=== PATIENT | male | born 1995 | race Caucasian/White ===

== ENCOUNTER 2022-08-12 21:20 | Emergency (ER) | payer OTHER, SELFPAY ==
[2022-08-12 21:28] VITALS: BP 134/62; PULSE 102; RESP 16; TEMP 36.3; O2SAT 99; BMI 26.6
--- OUTSIDE RECORDS SUMMARY | 2022-08-12 21:57 | XMS_ITS | Continuity of Care Document ---
:1995 Author Organization [facility] [address] [place] [address]- Care Team Providers Name Role Phone Nery DE LA TORRE, Layton Renee Primary Care Physician Encounter [facility] Date(s): 07/27/21 - 08/03/[address] [place] [id number] Attending Physician: So Staton MD Referring Physician: Not on Staff, Referring MD Allergies, Adverse Reactions, Alerts Substance Reaction Severity Status Paxil Hives Persistent Moderate Active Medications fluticasone 27.5 mcg/inh nasal spray 1 sprays, Nares, Both, 2 times a day, Use one spray twice daily in each nostril for congestion- stopusing for bloody noses, # 10 Gm, 0 Refills, Maintenance, 05/27/14 5:32:37, [place] Start Date: 05/27/14 Status: Orderedibuprofen 600 mg oral tablet 1 tablet = 600 mg, By Mouth, 4 times a day, # 20 tablet, 0 Refills, Maintenance, Tablet Start Date: 05/11/13 Stop Date: 05/16/13 Status: Orderedibuprofen 800 mg oral tablet 800, mg, 1, tablet, By Mouth, Every 8 hours, 21, 0, 0, 10/03/08 23:20:31, with food or milk, Print FITO Number, ADS OPPTHS, 57, Constant Indicator Start Date: 10/03/08 Status: OrderedNo Home Meds Maintenance, 09/02/14 8:54:21, [place] Start Date: 09/02/14 Status: OrderedPercocet-5/325 325 mg-5 mg oral tablet 1, tablet, By Mouth, Every 6 hours, Scheduled / PRN, 24, tablet, 0, 0, 10/03/08 23:20:48, as needed for pain, Print FITO Number, ADS OPPTHS, 54 Start Date: 10/03/08 Status: Ordered Problem List Condition Effective Dates Status Health Status Informant Asthma(Confirmed) Active Vital Signs Most recent to oldest [Reference Range]: 1 Height 172.72 cm (07/27/21 10:30 AM) Weight 80 kg (07/27/21 10:30 AM) Body Mass Index [18.5-24.99] 26.82 *H* (07/27/21 10:30 AM) Temperature [96.8-100.4 DegF] 98.2 DegF (07/27/21 10:30 AM) Social History Social History Type Response Smoking Status Never (less than 100 in life time) entered on: 07/27/21 Sex
--- OUTSIDE RECORDS SUMMARY | 2022-08-12 21:57 | XMS_ITS | Continuity of Care Document ---
:1995 Author Organization [facility] [address] [place] [address]- Care Team Providers Name Role Phone Nery DE LA TORRE, Layton Renee Primary Care Physician Encounter [facility] [place] Date(s): 07/23/21 - 08/26/[address] [place] [id number] Attending Physician: Connor Alonso MD Referring Physician: Not on Staff, Referring MD Allergies, Adverse Reactions, Alerts Substance Reaction Severity Status Paxil Hives Persistent Moderate Active Medications fluticasone 27.5 mcg/inh nasal spray 1 sprays, Nares, Both, 2 times a day, Use one spray twice daily in each nostril for congestion- stopusing for bloody noses, # 10 Gm, 0 Refills, Maintenance, 05/27/14 5:32:37, [place] Start Date: 05/27/14 Status: Orderedibuprofen 600 mg [...] Dates Status Health Status Informant Asthma(Confirmed) Active Social History Social History Type Response Smoking Status Never (less than 100 in life time) entered on: 07/27/21 Sex
--- OUTSIDE RECORDS SUMMARY | 2022-08-12 21:57 | XMS_ITS | Continuity of Care Document ---
:1995 Author Organization [facility] Address [address] [place] [address], [address] [place] [address]- Care Team Providers Name Role Phone Garrett Lima MD Primary Care Physician Encounter 06/24/20 - 07/01/20 [facility] [address], [address] [place] [address]- [facility] Attending Physician: Garrett Lima MD Admitting Physician: Garrett Lima MD Referring Physician: Garrett Lima MD Allergies, Adverse Reactions, Alerts Substance Reaction Severity Status Paxil Hives Persistent Moderate Active Medications fluticasone 27.5 mcg/inh nasal spray 1 sprays, Nares, Both, 2 times a day, Use one spray twice daily in each nostril for congestion- stopusing for bloody noses, # 10 Gm, 0 Refills, Maintenance, 05/27/14 5:32:37, [place] Start Date: 05/27/14 Status: Orderedibuprofen 600 mg [...]
--- OUTSIDE RECORDS SUMMARY | 2022-08-12 21:57 | XMS_ITS | Continuity of Care Document ---
:1995 Author Organization [facility] [address] [place] [address]- Care Team Providers Name Role Phone Layton Gabriel MD Primary Care Physician [place] [facility] [place] [place](s): 07/27/21 - 08/26/[address] [place] [id number] Attending Physician: Alma Walter Admitting Physician: AdmtrAlma Referring Physician: Admtr, ArRadha Allergies, Adverse Reactions, Alerts Substance Reaction Severity Status Paxil Hives Persistent Moderate Active Medications fluticasone 27.5 mcg/inh nasal spray 1 sprays, Nares, Both, 2 times a day, Use one spray twice daily in each nostril for congestion- stopusing for bloody noses, # 10 Gm, 0 Refills, Maintenance, 05/27/14 5:32:37, [place] Start Date: 05/27/14 Status: Orderedibuprofen 600 mg [...]
[2022-08-12 22:33] VITALS: BP 107/74; PULSE 90; RESP 13; TEMP 37.3; O2SAT 94
--- NOTE | 2022-08-12 22:33 | ED_ITS ---
HPI - Allergic Reaction General Chief complaint: Allergic Reaction Stated complaint: allergic reaction to amoxycillian Time Seen by Provider: 08/12/22 21:49 Source: patient Mode of arrival: ambulatory Limitations: no limitations History of Present Illness HPI narrative: Patient been feeling congested for the last few days prescribed amoxicillin yesterday today he woke up with rash all over the macular erythematous rash no swelling of the lips or tongue no shortness of breath Related Data Previous Rx's Medication Instructions Recorded diphenhydramine HCl 25 mg capsule 50 mg PO Q6-8H PRN allergic 08/13/22 (Benadryl) reaction #20 caps prednisone 20 mg tablet 40 mg PO DAILY #10 tabs 08/13/22 Allergies Allergy/AdvReac Type Severity Reaction Status Date / Time amoxicillin Allergy Intermediate Rash Verified 08/12/22 22:34 Review of Systems Review of Systems: Yes all other systems are reviewed and are negative [facility] Social History Social History Advance Directives: No Physical Exam ED Vital Signs: Vital Signs - 24 hr 08/12/22 21:28 08/12/22 22:33 Temperature 97.3 F 99.1 F Pulse Rate 102 H 90 Respiratory Rate 16 13 Blood Pressure 134/62 107/74 Pulse Oximetry 99 94 Oxygen Delivery Method Room Air Room Air BMI result Body Mass Index 26.6 Appearance: Alert. Oriented X3. No acute distress. ENT: Pharynx normal. Oral Mucosa moist clear rhinorrhea tongue and lips normal Neck: Normal inspection. Neck supple. CVS: Normal heart rate and rhythm. Pulses normal. Respiratory: No respiratory distress. Equal air entry bilateral, no wheezing/rales/rhonchi Abdomen: Soft and nontender. Bowel sounds are present, no mass palpable, no CVA tenderness Skin: Skin warm and dry. Maculopapular erythematous rash all over the body Extremities: No lower extremity edema. No calf tenderness Neuro: Oriented X 3. No motor deficit. Medications Administered Discontinued Medications Generic Name Dose Route Start Last Admin Trade Name Freq PRN Reason Stop Dose Admin Diphenhydramine HCl 50 mg 08/12/22 22:34 08/12/22 23:36 Diphenhydramine Hcl 25 Mg Capsule PO 08/12/22 22:35 50 mg ONCE ONE Administration Prednisone 60 mg 08/12/22 22:34 08/12/22 23:36 Prednisone 20 Mg Tablet PO 08/12/22 22:35 60 mg ONCE ONE Administration MDM - Allergic Reaction Lab Data Labs: Lab Results 08/12/22 Range/Units 22:42 Influenza Type A (PCR) NEGATIVE (Negative) Influenza Type B (PCR) NEGATIVE (Negative) RSV RNA Qual (PCR) NEGATIVE (Negative) SARS-CoV-2 RNA (RT-PCR) NEGATIVE (Negative) Discharge Plan Discharge Clinical Impression: Adverse reaction to drug, URI (upper respiratory infection) Patient Disposition: Home, Self-Care Instructions: Upper Respiratory Infection (ED), Antibiotic Medication Allergy (ED) Additional Instructions: Do not take amoxicillin you are allergic to it Benadryl, prednisone as advised Follow-up with your PCP if any concerns Prescriptions: New diphenhydramine HCl [Benadryl] 25 mg capsule 50 mg PO Q6-8H PRN (Reason: allergic reaction) Qty: 20 0RF prednisone 20 mg tablet 40 mg PO DAILY Qty: 10 0RF
[2022-08-12 23:26] LABS: Influenza A PCR NEGATIVE (Negative); Influenza B PCR NEGATIVE (Negative); Resp Syncy Virus RNA Qual PCR NEGATIVE (Negative); SARS COV2 PCR INHOUSE NEGATIVE (Negative)
[2022-08-12] MEDS: predniSONE 20 MG TABLET 60 MG PO (23:36)
[2022-08-12] MEDS: diphenhydrAMINE HCL 25 MG CAPSULE 50 MG PO (23:36)
--- NOTE | 2022-08-13 00:47 | PC.NURSE ---
Discharge instructions reviewed with pt. Pt verbalizes understanding.
== END 2022-08-13 00:48 | disposition home or self-care (01) ==
PROVIDERS: Emergency Provider Internal Medicine
DX: L27.0 Generalized skin eruption due to drugs and medicaments taken internally (principal); T36.0X5A Adverse effect of penicillins, initial encounter; Y92.9 Unspecified place or not applicable; J06.9 Acute upper respiratory infection, unspecified
CPT/HCPCS: 0241U; 99283

== ENCOUNTER 2023-10-16 08:40 | Outpatient (AMB) | payer OTHER, SELFPAY ==
--- OUTSIDE RECORDS SUMMARY | 2023-10-16 08:42 | XMS_ITS | Patient Health Record ---
Author Name Unknown Organization [employer] [facility] Address [address] [place] [id number] Care Team Providers Care Trend Investigator Name Role Phone TRIABBIE Primary Care Provider BedollaClarissaie Unavailable [phone] ALLERGIES Allergen (clinical drug ingredient) Drug/Non Drug Allergy documented on EMR Reaction Allergy Type Onset Date Status amoxicillin / clavulanate Augmentin hives , Severity Observation:Cayla re , Drug Allergy Active paroxetine Paxil hives , Severity Observation:Mode rate , Drug Allergy Active Ragweed , Severity Observation:Mode rate , Allergy Active RESULTS Component Value Reference Range Notes CHLAMYDIA/N. GONORRHOEAE RNA , TMA, UROGENITAL ([id number]) Reviewed date:02/25/2023 08:46:18 AM Interpretation: Performing Lab:NL2, [facility] [place], [place] [id number] Dhruv Velázquez Notes/Report: SPECIMEN DROPPED OFF FASTING:UNKNOWN FASTING: UNKNOWN CHLAMYDIA TRACHOMATIS RNA, TMA, UROGENITAL NOT DETECTED NOT DETECTED NEISSERIA GONORRHOEAE RNA, TMA, UROGENITAL NOT DETECTED NOT DETECTED COMMENT The analytical performance characteristics of this assay, when used to test SurePath(TM) specimens have been determined by [facility]. The modifications have not been cleared or approved by the FDA. This assay has been validated pursuant to the CLIA regulations and is used for clinical purposes. For additional information, please refer to [email or web address]://[email or web address].PhotoBox/faq/LJK732 (This link is being provided for information/ educational purposes only.) CBC (INCLUDES DIFF/PLT) ([id number]) Reviewed date:05/11/2023 07:42:24 AM Interpretation: Performing Lab:NL2, [facility] Dhruv Velázquez Notes/Report: FASTING:NO FASTING: NO WHITE BLOOD CELL COUNT 6.9 3.8-10.8 Thousand/ uL RED BLOOD CELL COUNT 4.96 4.20-5.80 Million/uL HEMOGLOBIN 14.5 13.2-17.1 g/dL HEMATOCRIT 41.9 38.5-50.0 % MCV 84.5 80.0-100.0 fL MCH 29.2 27.0-33.0 pg MCHC 34.6 32.0-36.0 g/dL RDW 12.6 11.0-15.0 % PLATELET COUNT 404 140-400 Thousand/uL MPV 10.9 7.5-12.5 fL ABSOLUTE NEUTROPHILS 4085 3639-5004 cells/uL ABSOLUTE LYMPHOCYTES 2070 850-3900 cells/uL ABSOLUTE MONOCYTES 607 200-950 cells/uL ABSOLUTE EOSINOPHILS 110 15-500 cells/uL ABSOLUTE BASOPHILS 28 0-200 cells/uL NEUTROPHILS 59.2 LYMPHOCYTES 30.0 MONOCYTES 8.8 EOSINOPHILS 1.6 BASOPHILS 0.4 BABESIA DUNCANI (WA1) ANTIBO DY (IGG), IFA ([id number]) Reviewed date:05/17/2023 09:19:50 AM Interpretation: Performing Lab:[facility],[address] [facility] HospitalCA[address] Gina Cedeño MD,PhD,ANDREINA Notes/Report: FASTING:NO FASTING: NO BABESIA DUNCANI (WA1) ANTIBODY (IGG), IFA <1:256 REFERENCE RANGE: <1:256 INTERPRETIVE CRITERIA: <1:256 Antibody not detected > or = 1:256 Antibody detected Babesia duncani, also known as WA1, has been associated with symptoms similar to those caused by Babesia microti. Little, if any, cross-reactivity occurs between Babesia microti and WA1. This test was developed and its analytical performance characteristics have been determined by [facility]. It has not been cleared or approved by FDA. This assay has been validated pursuant to the CLIA regulations and is used for clinical purposes. BARTONELLA SPECIES AB (IGG,I GM) W/REFL TITERS ([id number]) Reviewed date:05/15/2023 11:37:56 AM Interpretation: Performing Lab:Mariah SUTHERLAND/[facility] [id number] [facility] , [id number] Tenzin Perez M.D.,PhD Notes/Report: FASTING:NO FASTING: NO B. HENSELAE AB (IGG), SCREEN Negative B. RICHEY AB (IGG), SCREEN Negative B. HENSELAE AB (IGM), SCREEN Negative B. RICHEY AB (IGM), SCREEN Negative Reference Range: Negative Whereas sera from 10% of healthy controls exhibit Bartonella henselae IgG titers of 1:64-1:128, none show titers of 1:256 or above. Sera from 95% of patients with clinically defined cat scratch disease show IgG titers of 1:64 and above; 79% exhibit titers of 1:256 and above. IgM titers at 1:20 or higher have not been detected in the normal adult population. Individuals infected with B. henselae may not have initial IgG titers greater than or equal to 1:64; confirmation of infection may therefore require testing of serial specimens to detect increasing IgG titers or the presence of IgM. The two major clinical manifestations associated with B. richey infection are urban trench fever and endocarditis. Due to the acute nature of urban trench fever, both B. richey IgG and IgM may be positive. In contrast, B. richey-associated endocarditis typically reflects chronic infection, and these patients nearly always exhibit an IgG positive but IgM negative result pattern. This test was developed and its analytical performance characteristics have been determined by [facility] [place], [place]. It has not been cleared or approved by the U.S. Food and Drug Administration. This assay has been validated pursuant to the CLIA regulations and is used for clinical purposes. EHRLICHIA CHAFFEENSIS (IGG,I GM) ([id number]) Reviewed date:05/17/2023 09:19:53 AM Interpretation: Performing Lab:Mariah [facility],[address] [address] [id number] Gina Cedeño MD,PhD,ANDREINA Notes/Report: FASTING:NO FASTING: NO E. CHAFFEENSIS AB IGG <1:64 E. CHAFFEENSIS AB IGM <1:20 INTERPRETATION ANTIBODY NOT DETECTED REFERENCE RANGE: IgG <1:64 IgM <1:20 Ehrlichia chaffeensis has been identified as the causative agent of Human Monocytic Ehrlichiosis (HME). Infected individuals produce specific antibodies to E. chaffeensis that can be detected by an immunofluorescent antibody (IFA) test. Single IgG IFA titers of 1:64 or greater indicate exposure to E. chaffeensis. A four-fold rise in IgG titers between acute and convalescent samples and/or the presence of IgM antibody against E. chaffeensis suggest recent or current infection. This test was developed and its analytical performance characteristics have been determined by [facility]. It has not been cleared or approved by FDA. This assay has been validated pursuant to the CLIA regulations and is used for clinical purposes. LYME DISEASE ANTIBODIES (IGG ,IGM), IMMUNOBLOT ([id number]) Reviewed date:05/12/2023 09:16:02 AM Interpretation: Performing Lab:NL2, [email or web address] A[address]fd[address] Dhruv Velázquez Notes/Report: FASTING:NO FASTING: NO LYME DISEASE AB(IGG),BLOT NEGATIVE NEGATIVE 18 KD (IGG) BAND NON-REACTIVE 23 KD (IGG) BAND NON-REACTIVE 28 KD (IGG) BAND NON-REACTIVE 30 KD (IGG) BAND NON-REACTIVE 39 KD (IGG) BAND NON-REACTIVE 41 KD (IGG) BAND NON-REACTIVE 45 KD (IGG) BAND NON-REACTIVE 58 KD (IGG) BAND NON-REACTIVE 66 KD (IGG) BAND NON-REACTIVE 93 KD (IGG) BAND NON-REACTIVE LYME DISEASE AB(IGM),BLOT NEGATIVE NEGATIVE 23 KD (IGM) BAND NON-REACTIVE 39 KD (IGM) BAND NON-REACTIVE 41 KD (IGM) BAND NON-REACTIVE Lyme immunoblot testing should only be performed on samples from patients who have had a Positive or Equivocal result in a screening assay. As per CDC criteria, a Lyme disease IgG Immunoblot must show reactivity to at least 5 of 10 specific borrelial proteins to be considered positive; similarly, a positive Lyme disease IgM immunoblot requires reactivity to 2 of 3 specific borrelial proteins. Although considered negative, IgG reactivity to fewer specific borrelial proteins or IgM reactivity to only 1 protein may indicate recent B. burgdorferi infection and warrant testing of a later sample. A positive IgM but negative IgG result obtained more than a month after onset of symptoms likely represents a false- positive IgM result rather than acute Lyme disease. In rare instances, Lyme disease immunoblot reactivity may represent antibodies induced by exposure to other spirochetes. RICKETTSIA ANTIBODY PANEL W/ REFL TO TITERS ([id number]) Reviewed date:05/15/2023 11:37:56 AM Interpretation: Performing Lab:[facility]/Nuris CespedesRubina [id number] Megan Medina, [id number] Tenzin Perez M.D.,PhD Notes/Report: FASTING:NO FASTING: NO RMSF IGG Not Detected Not Detected RMSF IGM Not Detected Not Detected R. TYPHI IGG Not Detected Not Detected R. TYPHI IGM Not Detected Not Detected COMPREHENSIVE METABOLIC PANE L ([id number]) Reviewed date:05/11/2023 07:42:56 AM Interpretation: Performing Lab:NL2, [email or web address] [address] [place], [place] [id number] Valerialisa Basilio Velázquez Notes/Report: FASTING:NO FASTING: NO GLUCOSE 88 65-139 mg/dL Non-fasting reference interval UREA NITROGEN (BUN) 10 7-25 mg/dL CREATININE 0.73 0.60-1.24 mg/dL EGFR 127 > OR = 60 mL/min/1.73m2 BUN/CREATININE RATIO SEE NOTE: 6-22 (calc) Not Reported: BUN and Creatinine are within reference range. SODIUM 139 135-146 mmol/L POTASSIUM 4.5 3.5-5.3 mmol/L CHLORIDE 103 98-110 mmol/L CARBON DIOXIDE 30 20-32 mmol/L CALCIUM 9.6 8.6-10.3 mg/dL PROTEIN, TOTAL 6.6 6.1-8.1 g/dL ALBUMIN 4.4 3.6-5.1 g/dL GLOBULIN 2.2 1.9-3.7 g/dL (calc) ALBUMIN/GLOBULIN RATIO 2.0 1.0-2.5 (calc) BILIRUBIN, TOTAL 0.7 0.2-1.2 mg/dL ALKALINE PHOSPHATASE 57 36-130 U/L AST 16 10-40 U/L ALT 18 9-46 U/L REASON FOR REFERRAL No Information MEDICATIONS Medication SIG (Take, Route, Frequency, Duration) Notes Start Date End Date Status Breo Ellipta 200-25 MCG/ACT 1 puff Inhalation Once a day for 30 days 07/14/2023 Active Loratadine 10 MG TAKE 1 TABLET BY JON TH EVERY DAY FOR 30 DAYS for 90 Active Albuterol Sulfate HFA 108 (90 Base) MCG/ACT 1 puff as needed Inhalation every 4 hrs for 30 days 2023 Active SOCIAL HISTORY Tobacco Use: Social History Observation Description Date Details (start date - stop date) Never Smoker NA - NA Sex Assigned At : Social History Observation Description Sex Assigned At Unknown Tobacco Use/Smoking Question Answer Notes Tobacco use: nonsmoker Sexual History Question Answer Notes Had sex in the past 12 months (vaginal, oral, or anal)? Yes with Women only PROBLEMS Problem Type ICD Code Onset Dates Problem Status W/U Status Risk SNOMED Code Notes Problem Acne vulgaris (L70.0) Active confirmed 40773309 Problem Mild intermittent asthma without complication (J45.20) Active confirmed 262657673 Problem Anxiety (F41.9) Active confirmed 359358 02 VITAL SIGNS Heart Rate 83 /min 07/14/2023 Temperature 98.4 degrees Fahrenheit 07/14/2023 Blood pressure diastolic 68 mm Hg 07/14/2023 Height-cm 175.26 cm 07/14/2023 Oximetry 93 % 07/14/2023 Weight-kg 87.45 kg 07/14/2023 Height 69 in 07/14/2023 Blood pressure systolic 108 mm Hg 07/14/2023 Weight 192.8 lbs 07/14/2023 BMI 28.47 kg/m2 07/14/2023 Encounters Encounter Location Date Provider Diagnosis [address] [id number] 05/25/2023 Batool Bedolla [address] [id number] 05/31/2023 Batool Bedolla [address] [id number] 08/23/2023 Batool Bedolla [address] [id number] 12/20/2022 ABBIE BARTLETT Nasal congestion R09.81 ; Cough R05.1 and Acute sinusitis, unspecified J01.[address] [id number] 02/22/2023 Batool Bedolla Encounter for genera l adult medical examination without abnormal findings Z00.00 ; Encounter for screening for depression Z13.31 ; Encounter for screening for other disorder Z13.89 ; Encounter for screening for infections with predominantly sexual mode of transmission Z11.3 ; Anxiety F41.9 ; Mild intermittent asthma without complication J45.20 ; Acne vulgaris L70.0 and Eye exam, routine Z01.[address] [id number] 05/10/2023 Batool Bedolla Recent unexplained fever R50.9 and Left hand pain M79.[address] [id number] 2023 Batool Bedolla Mild intermittent asthma without complication J45.20 and Acute cough R05.[address] [id number] 07/14/2023 Batool Bedolla Wheezing R06.2 and Lung crackles R09.[address] [id number] 07/21/2023 Batool Bedolla ASSESSMENTS Encounter Date Diagnosis Assessment Notes Treatment Notes Treatment Clinical Notes 12/20/2022 Cough (ICD-10 - R05.1) 12/20/2022 Nasal congestion (ICD-10 - R09.81) An upper respiratory infection, or URI, is an infection of the nose, sinuses, or throat. URIs are spread by coughs, sneezes, and direct contact. The common cold is the most frequent kind of URI. The flu and sinus infections are other kinds of URIs. 02/22/2023 Encounter for general adult medical examination without abnormal findings (ICD-10 - Z00.00) We discussed short and long-term health goals. The exam today was without concerns, states feel safe at home. Reports having working CO2 and Smoke detectors. Encouraged to wear sunscreen. Reports wearing a seatbelt when driving or as a passenger. Encourage regular exercise of moderate intensity 30 min 5x/week. Labs done in June 2022. 02/22/2023 Encounter for screening for depression (ICD-10 - Z13.31) PHQ9 Score: 6 low risk for major depressive disorder 05/10/2023 Recent unexplained fever (ICD-10 - R50.9) Symptoms have resolved Will obtain Tick Panel in the event that symptoms were related to a bite Janet will contact the office if his symptoms worsen 05/10/2023 Left hand pain (ICD-10 - M79.642) Obtain x-ray Janet tries to wear the brace for his carpal tunnel but it is painful, he states that he has had a lot of broken bones in the past and he is concerned that there is something else wrong with. ROM is slightly limited in his left wrist. 2023 Acute cough (ICD-10 - R05.1) Increase fluids Cool mist humidifier Lozengers Call office if not improved in 48-72 hours. 2023 Mild intermittent asthma without complication (ICD-10 - J45.20) Continue occasional use of inhaler Avoid allergens Promptly address any infections Call if using inhalers more frequently 07/14/2023 Wheezing (ICD-10 - R06.2) Link R09.89 lung crackles Obtain chest x-ray concerning for airway disease vs pneumonia Will order maintenence inhaler Encourage increased fluid intake and nutrition Encouraged activity as tolerated Continue to cough and deep breath 07/14/2023 Lung crackles (ICD-10 - R09.89) 12/20/2022 Acute sinusitis, unspecified (ICD-10 - J01.90) Acute Sinusitis: Care Instructions material was published, The Sinuses: Anatomy Sketch material was published, Saline Nasal Washes: Care Instructions material was published 02/22/2023 Encounter for screening for other disorder (ICD-10 - Z13.89) CAGE Questions Adapted to Include Drug Use (CAGE-AID) 1. Have you ever felt you ought to cut down on your drinking or drug use? N 2. Have people annoyed you by criticizing your drinking or drug use? N 3. Have you felt bad or guilty about your drinking or drug use? N 4. 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 N Total Score: 0 Scoring: Item responses on the CAGE questions are scored 0 for no and 1 for yes answers, with a higher score being an indication of alcohol problems. A total score of two or greater is considered clinically significant. 02/22/2023 Encounter for screening for infections with predominantly sexual mode of transmission (ICD-10 - Z11.3) Urine GC obtained 02/22/2023 Anxiety (ICD-10 - F41.9) Physical activity, a healthy diet, regular sleep, and relaxation exercises may all help reduce anxiety. Joining a support group may also help. To manage symptoms effectively, its best to avoid caffeine, alcohol, and nicotine. See a doctor immediately if you: are thinking about suicide and or can't complete activities of daily living. Well controlled at this time, is not interested in taking medication 02/22/2023 Mild intermittent asthma without complication (ICD-10 - J45.20) Condition is stable and well controlled on current treatment. No changes made, medication(s) refilled as indicated 02/22/2023 Acne vulgaris (ICD-10 - L70.0) Condition is stable and well controlled on current treatment. No changes made, medication(s) refilled as indicated. Wash with prescription cleanser once daily only, alternate with gentle foaming cleanser. Medication(s) reviewed. Sun sensitivity emphasized, especially with oral medication(s) 02/22/2023 Eye exam, routine (ICD-10 - Z01.00) Recommended further evaluation by front office assistant 12/20/2022 Other Total time spen t with patient 20 minutes which includes face to face visit, education and coordination of care. PLAN OF TREATMENT Pending Test Test Name Order Date X ray : Chest 07/14/2023 X ray : Hand, left 05/10/2023 Insurance Providers Payer Name Payer Address Payer Phone Subscriber Number Group Number Insured Name Patient Relationship to Insured Coverage Start Date Coverage End Date [address] [place] [phone] [id number] JANET ANN Self - patient is the insured 3 [facility] [address] [address] [place] [address] [id number] JANET ANN Self - patient is the insured MEDICAL (GENERAL) HISTORY Medical History History ICD Code Urticaria Acne Vulgaris Anxiety Asthma Surgical History Surgery Date(Month/Year) Appendectomy Rt. Knee Surgery Earring surgery, left ear - removal @ 15 yo
[2023-10-16 09:10] VITALS: BP 112/68; PULSE 76; TEMP 36.6; O2SAT 98; BMI 23.9
--- NOTE | 2023-10-16 09:10 | AM.OFFWIN_ITS ---
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 Reporting symptoms of sinus congestion, sore throat and difficulty swallowing. Low-grade fever. No family member is sick. No recent travel. Patient reports symptoms of malaise and fatigue. [facility] Social History Patient Tobacco Use Status: Never used Tobacco Physical Exam Vital Signs: Last Vital Signs Temp 97.9 F 10/16/23 09:10 Pulse 76 10/16/23 09:10 BP 112/68 10/16/23 09:10 Pulse Ox 98 10/16/23 09:10 Oxygen Delivery Method Room Air 10/16/23 09:10 BMI result Body Mass Index 23.9 Const General: cooperative and healthy appearing Nutritional Appearance: well nourished Orientation/consciousness: patient oriented x3 Limitations: no limitations HEENT Head: Yes normal to inspection Eyes General: appearance normal, both eyes and all related structures Neck Neck: Yes normal visual inspection Chest Chest palpation & inspection: normal palpation of entire chest wall Resp Effort & Inspection: normal respiratory effort Neuro General: patient oriented x3 Assessment & Plan Assessment & Plan (1) Upper respiratory tract infection: Code(s): J06.9 - Acute upper respiratory infection, unspecified Plan: Antibiotics ordered. Increase fluid intake. Tylenol for aches and pains. If symptoms worsen, follow-up here for a recheck. Will call with results of the viral swab Orders: Orders SARS-CoV2/FLU/RSV Today R43.9 - Unspecified disturbances of smell and taste Medications: New azithromycin take 500 mg today (day 1), then 250 mg for 4 days (days 2-5) PO 6 tabs 0RF Coding Level of Care Code Est Pt Level 3 (35808) Diagnoses Upper respiratory tract infection J06.9
== END 2023-10-16 09:55 | disposition home or self-care (01) ==
PROVIDERS: PCP Registered Nurse; Visit Provider Internal Medicine
DX: J06.9 Acute upper respiratory infection, unspecified (principal)
CPT/HCPCS: 99213

== ENCOUNTER 2023-10-16 13:52 | Outpatient (REF) | payer OTHER, SELFPAY ==
[2023-10-16 14:39] LABS: Influenza A PCR NEGATIVE (Negative); Influenza B PCR NEGATIVE (Negative); Resp Syncy Virus RNA Qual PCR NEGATIVE (Negative); SARS COV2 PCR INHOUSE NEGATIVE (Negative)
== END 2023-10-16 13:53 | disposition home or self-care (01) ==
LOC: HO.LNP 13:52
PROVIDERS: Visit Provider Internal Medicine
DX: Z11.52 Encounter for screening for COVID-19 (principal); Z20.822 Contact with and (suspected) exposure to COVID-19; R43.9 Unspecified disturbances of smell and taste
CPT/HCPCS: 0241U

== ENCOUNTER 2023-12-20 08:28 | Outpatient (AMB) | payer OTHER, SELFPAY ==
[2023-12-20 08:30] VITALS: BP 112/70; PULSE 73; TEMP 36.6; O2SAT 97
--- NOTE | 2023-12-20 08:30 | AM.OFFWIN_ITS ---
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 Denies fevers, nausea or vomiting. [facility] Social History Patient Tobacco Use Status: Never used Tobacco Review of Systems Const All systems reviewed & are unremarkable except as noted in HPI and below Physical Exam Vital Signs: Last Vital Signs Temp 97.9 F 12/20/23 08:30 Pulse 73 12/20/23 08:30 BP 112/70 12/20/23 08:30 Pulse Ox 97 12/20/23 08:30 Oxygen Delivery Method Room Air 12/20/23 08:30 Const General: comfortable and no acute distress Orientation/consciousness: patient oriented x3 HEENT Head: Yes normocephalic Ears: external ears normal and TM abnormal with fluid behind the TM on the right and on the left; not bulging, not bullous, not with effusion, not erythematous, not perforated and not retracted General nose exam: Abnormal mucous membranes and turbinates present boggy and erythematous Face and sinus: Yes sinuses nontender Throat: Yes posterior oropharynx normal Resp Effort & Inspection: normal respiratory effort, able to speak in complete sentences and no cough Auscultation: clear to auscultation bilaterally, no crackles, no rales, no rhonchi and no wheezes Cardio Rate: regular rate Rhythm: regular rhythm Neuro General: patient oriented x3 Results AMB Rapid Strep AMB Rapid Strep Negative Last Edit by Fernando Murcia CMA on 12/20/23 08 :40 Results Reviewed Results Reviewed: Laboratory Last Values Strep Scn Rapid Clinic Negative 12/20/23 08:39 Assessment & Plan Assessment & Plan (1) Acute pharyngitis: Code(s): J02.9 - Acute pharyngitis, unspecified Qualifiers: Pharyngitis/tonsillitis etiology: unspecified etiology Qualified Code(s): J02.9 - Acute pharyngitis, unspecified Plan: - OTC cold remedies - SARs - Acetaminophen for pain relief - Rest and hydrate with warm fluids Orders: Orders SARS-CoV2/FLU/RSV Today J02.9 - Acute pharyngitis, unspecified AMB Rapid Strep Screen Today Z13.9 - Encounter for screening, unspecified Coding Level of Care Code Est Pt Level 3 (15971) Diagnoses Acute pharyngitis, unspecified etiology J02.9 Pharyngitis/tonsillitis etiology: unspecified etiology Time Spent (min) 15
== END 2023-12-20 09:25 | disposition home or self-care (01) ==
PROVIDERS: PCP Registered Nurse; Visit Provider Nurse Practitioner Family
DX: J02.9 Acute pharyngitis, unspecified (principal)
CPT/HCPCS: 87880; 99213

== ENCOUNTER 2023-12-20 08:47 | Outpatient (REF) | payer OTHER, SELFPAY ==
[2023-12-20 13:13] LABS: Influenza A PCR NEGATIVE (Negative); Influenza B PCR NEGATIVE (Negative); Resp Syncy Virus RNA Qual PCR NEGATIVE (Negative); SARS COV2 PCR INHOUSE NEGATIVE (Negative)
== END 2023-12-20 08:48 | disposition home or self-care (01) ==
LOC: HO.LAB 08:47
PROVIDERS: Visit Provider Nurse Practitioner Family
DX: J03.90 Acute tonsillitis, unspecified (principal); J02.9 Acute pharyngitis, unspecified; Z13.9 Encounter for screening, unspecified
CPT/HCPCS: 0241U